=== PATIENT | female | born 1980 | race Caucasian/White ===

== ENCOUNTER 2019-01-31 00:10 | Inpatient (IN) | payer MEDICAID ==
[~2019-01-31] VITALS: Ht 152.4 cm; Wt 60.4 kg
[~2019-01-31 00:10] MED LIST: CALC600T24 PO; FOLI0.4T2 PO; IBUP-1542 PO; Lanolin Hpa TOP; PRENAT PO; SENOKOTS PO; TUCKS PR
[2019-01-31 01:43] VITALS: BP 118/74; PULSE 55; RESP 18
[2019-01-31] MEDS ORDERED: LACTATED RINGER'S 1,000 ML IV PRN (01:56)
[2019-01-31] MEDS ORDERED: METHYLERGONOVINE 0.2 MG INJ IM PRN ×2 (02:00→04:00)
[2019-01-31] MEDS ORDERED: IBUPROFEN 600 MG TAB PO PRN (02:00)
[2019-01-31] MEDS ORDERED: OXYTOCIN 30 UNITS/LR 500 ML IV SCH ×3 (02:00→03:41)
[2019-01-31] MEDS ORDERED: LIDOCAINE 1% (MPF) 30 ML INJ INJ PRN (02:00)
[2019-01-31] MEDS ORDERED: OXYTOCIN 30 UNITS/LR 500 ML IV PRN ×2 (02:00→04:00)
[2019-01-31] MEDS ORDERED: MISOPROSTOL 200 MCG TAB PR PRN ×2 (02:00→04:00)
[2019-01-31] MEDS ORDERED: MINERAL OIL LIGHT 10 ML VIAL TOP ONE (02:00)
[2019-01-31] MEDS ORDERED: CARBOPROST 250 MCG INJ IM PRN ×2 (02:00→04:00)
[2019-01-31] MEDS ORDERED: BUTORPHANOL 2 MG INJ IV PRN ×2 (02:00)
[2019-01-31] MEDS ORDERED: LACTATED RINGER'S 1,000 ML IV* SCH (03:41)
[2019-01-31] MEDS ORDERED: MAGNESIUM HYDROXIDE 30ML CUP PO PRN (04:00)
[2019-01-31] MEDS ORDERED: DIBUCAINE 1% 30 GM OINT TOP PRN (04:00)
[2019-01-31] MEDS ORDERED: BENZOCAINE 20% 56 ML SPRAY TOP PRN (04:00)
[2019-01-31] MEDS ORDERED: WITCH HAZEL/GLYCERIN PAD PR PRN (04:00)
[2019-01-31] MEDS ORDERED: LANOLIN HPA 1 PKT TOP PRN (04:00)
[2019-01-31] MEDS ORDERED: SENNA/DOCUSATE NA (8.6MG/50MG) TAB PO PRN (04:00)
[2019-01-31] MEDS ORDERED: ACETAMINOPHEN 325 MG TAB PO PRN ×2 (04:00)
[2019-01-31] MEDS ORDERED: ONDANSETRON 4 MG INJ IV PRN (04:00)
[2019-01-31 05:21] VITALS: BP 126/78; PULSE 58; RESP 18
[2019-01-31] MEDS: LACTATED RINGER'S 1,000 ML IV SCH ×2 (05:23→09:56)
[2019-01-31] MEDS: IBUPROFEN 600 MG TAB PO PRN (06:21)
[2019-01-31 08:00] VITALS: BP 103/56; PULSE 55; RESP 16; RESP 18
[2019-01-31 16:03] VITALS: BP 109/67; PULSE 55; RESP 18
[2019-01-31 20:30] VITALS: BP 104/65; PULSE 60; RESP 20
[2019-02-01 00:15] VITALS: BP 114/67; PULSE 64; RESP 18
[2019-02-01 04:15] VITALS: BP 108/69; PULSE 59; RESP 18
[2019-02-01 08:00] VITALS: BP 120/75; PULSE 63; RESP 18
[2019-02-01 15:16] VITALS: BP 109/71; PULSE 67; RESP 18
[2019-02-01 20:00] VITALS: BP 122/72; PULSE 65; RESP 18
[2019-02-01] MEDS: IBUPROFEN 600 MG TAB PO PRN (21:13)
[2019-02-02 04:15] VITALS: BP 118/72; PULSE 61; RESP 18
[2019-02-02 08:00] VITALS: BP 118/70; RESP 18
== END 2019-02-02 16:50 | disposition home or self-care (01) | DRG 807 ==
LOC: OBT 00:10 → L-D 00:10 → OBT 01:50 → L-D 03:06 → PP1 05:12 → UNDODISIN 19:10
PROVIDERS: ADMIT Specialist; ATTEND Specialist
PROC: 10E0XZZ Delivery of Products of Conception, External Approach (ICD-10-PCS; principal; 2019-01-31)
PROC: 0HQ9XZZ Repair Perineum Skin, External Approach (ICD-10-PCS; 2019-01-31)
DX: O70.0 First degree perineal laceration during delivery (principal); Z37.0 Single live birth; Z3A.38 38 weeks gestation of pregnancy
CPT/HCPCS: 85025; 85610; 85730; 86592; 86703; 86850; 86900; 86901; 87340; G0463; J2590; J7120